=== PATIENT | female | born 1980 | race Caucasian/White ===

== ENCOUNTER 2021-03-31 02:02 | Inpatient (IN) ==
[2021-03-31 05:04] LABS: Basophils # 0.1 K/mcL (0.0-0.2); Basophils % 0.4 %; Eosinophils # 0.2 K/mcL (0.0-0.6); Eosinophils % 0.8 %; Hematocrit 30.9 % (35.3-44.9); Hemoglobin 9.7 g/dL (11.5-15.4); Immature Granulocytes % 0.5 % (0-4); Lymphocytes # 2.4 K/mcL (0.6-4.6); Lymphocytes % 12.3 %; Mean Corpuscular HGB Conc 31.4 g/dL (31.6-35.5); Mean Corpuscular Hemoglobin 26.7 pg (28.0-33.3); Mean Corpuscular Volume 85.1 fL (83.0-100.0); Mean Platelet Volume 9.3 fL (9.4-12.4); Monocytes # 0.6 K/mcL (0.0-1.3); Platelet Count 384 K/mcL (140-400); Red Blood Count 3.63 M/mcL (3.82-4.97); Red Cell Distribution Width 15.7 % (11.5-14.5); White Blood Count 19.3 K/mcL (4.3-11.1)
[2021-03-31] MEDS ORDERED: Isovue-370 500 ML BOTTLE IVP ONE (05:15)
[2021-03-31 05:17] LABS: BUN/Creatinine Ratio 14 (6-26); Blood Urea Nitrogen 11 mg/dL (6-20); Calcium 8.7 mg/dL (8.6-10.3); Carbon Dioxide 20 mEq/L (23-29); Chloride 107 mEq/L (98-107); Glucose 109 mg/dL (70-105); Osmolality,Calculated 284 (280-300); Potassium 3.3 mEq/L (3.5-5.1); Sodium 137 mEq/L (136-145); Troponin I < 0.03 ng/mL (< 0.04); eGFR For African Americans > 60 (> 60); eGFR For Non-African Americans > 60 (> 60)
[2021-03-31 05:54] LABS: Adenovirus Not Detected (Not Detect); Bordetella Pertussis Not Detected (Not Detect); Chlamydophila pneumoniae Not Detected (Not Detect); Coronavirus 229E Not Detected (Not Detect); Coronavirus HKU1 Not Detected (Not Detect); Coronavirus NL63 Not Detected (Not Detect); Coronavirus OC43 Not Detected (Not Detect); Human Metapneumovirus Not Detected (Not Detect); Human Rhinovirus/Enterovirus Not Detected (Not Detect); Influenza A Subtype 2009 H1 Not Detected (Not Detect); Influenza B Not Detected (Not Detect); Mycoplasma pneumoniae Not Detected (Not Detect); Parainfluenza Virus 1 Not Detected (Not Detect); Parainfluenza Virus 2 Not Detected (Not Detect); Parainfluenza Virus 3 Not Detected (Not Detect); Parainfluenza Virus 4 Not Detected (Not Detect); Respiratory Syncytial Virus Not Detected (Not Detect); SARS-CoV-2 Not Detected (Not Detect)
[2021-03-31] MEDS ORDERED: cefTRIAXone 1,000 MG in Water for inj. (sterile) 10 ML IVP ONE (06:32)
[2021-03-31] MEDS ORDERED: Azithromycin 500 MG in 0.9 % Sodium Chloride 250 ML IVPB ONE (06:32)
[2021-03-31] MEDS ORDERED: Ondansetron 4 MG/2 ML VIAL IVP PRN (07:18)
[2021-03-31] MEDS ORDERED: Naloxone 0.4 MG/ML INJ IVP PRN (07:18)
[2021-03-31 08:05] LABS: Mean Corpuscular HGB Conc 31.3 g/dL (31.6-35.5); Mean Corpuscular Hemoglobin 26.9 pg (28.0-33.3); Mean Platelet Volume 9.4 fL (9.4-12.4); Platelet Count 390 K/mcL (140-400); Red Blood Count 3.72 M/mcL (3.82-4.97); Red Cell Distribution Width 15.6 % (11.5-14.5)
[2021-03-31] MEDS: levoFLOXacin 750 MG/150 ML 750 MG/150 ML BAG IVPB SCH (11:59)
[2021-03-31] MEDS: *HR* HYDROcodone/Acet 5/325 mg TABLET PO PRN ×2 (12:02→20:12)
[2021-03-31] MEDS: Ipratropium/Albuterol Neb 3 ML IH PRN ×2 (16:25→20:26)
[2021-03-31] MEDS: *HR* Heparin 5,000 UNIT/ML VIAL SQ SCH (17:26)
[2021-03-31] MEDS ORDERED: Acetaminophen/Butalbital/CaffeineTABLET PO ONE (17:28)
[2021-03-31] MEDS: tiZANidine 4 MG TABLET PO SCH (20:12)
[2021-03-31] MEDS: Gabapentin 300 MG CAPSULE PO SCH (20:12)
[2021-04-01] MEDS: Ipratropium/Albuterol Neb 3 ML IH PRN (02:57)
[2021-04-01] MEDS: *HR* HYDROcodone/Acet 5/325 mg TABLET PO PRN ×4 (02:58→21:45)
[2021-04-01] MEDS ORDERED: Saline Nasal Spray 44 ML BOTTLE NS PRN (05:15)
[2021-04-01] MEDS ORDERED: Oxymetazoline Nasal SPRAY BOTTLE NS PRN (05:15)
[2021-04-01] MEDS: *HR* Heparin 5,000 UNIT/ML VIAL SQ SCH ×2 (05:30→15:33)
[2021-04-01 06:25] LABS: INR 1.2; Prothrombin Time 14.1 Seconds (9.4-12.1)
[2021-04-01] MEDS: Ipratropium/Albuterol Neb 3 ML IH SCH ×4 (06:28→22:15)
[2021-04-01 06:33] LABS: BUN/Creatinine Ratio 7 (6-26); Blood Urea Nitrogen 5 mg/dL (6-20); Calcium 8.4 mg/dL (8.6-10.3); Carbon Dioxide 21 mEq/L (23-29); Chloride 105 mEq/L (98-107); Glucose 133 mg/dL (70-105); Magnesium 1.7 mg/dL (1.6-2.6); Osmolality,Calculated 279 (280-300); Phosphorous 2.8 mg/dL (2.7-4.5); Potassium 2.8 mEq/L (3.5-5.1); Sodium 135 mEq/L (136-145); eGFR For African Americans > 60 (> 60); eGFR For Non-African Americans > 60 (> 60)
[2021-04-01] MEDS: FLUoxetine 20 MG CAPSULE PO SCH (07:37)
[2021-04-01] MEDS: Cholecalciferol (D-3) 1,000 UNIT (25MCG) TABLET PO SCH (07:39)
[2021-04-01] MEDS: levoFLOXacin 750 MG/150 ML 750 MG/150 ML BAG IVPB SCH (07:40)
[2021-04-01] MEDS ORDERED: hydroCHLOROthiazide 25 MG TABLET PO SCH (09:00)
[2021-04-01] MEDS ORDERED: Perflutren Lipid Microsphere 1.3 ML in 0.9 % Sodium Chloride 8.7 ML IVP PRN (10:51)
[2021-04-01] MEDS: cloNIDine HCL 0.1 MG TABLET PO SCH ×2 (13:14→20:23)
[2021-04-01] MEDS: Methylphenidate HCl 5 MG TABLET PO SCH ×2 (17:31→20:31)
[2021-04-01] MEDS: Gabapentin 300 MG CAPSULE PO SCH (20:22)
[2021-04-01] MEDS: Doxycycline 100 MG CAPSULE PO SCH (20:23)
[2021-04-01] MEDS: tiZANidine 4 MG TABLET PO SCH (20:23)
[2021-04-02] MEDS: Ipratropium/Albuterol Neb 3 ML IH SCH ×4 (03:38→21:58)
[2021-04-02 04:48] LABS: Basophils # 0.1 K/mcL (0.0-0.2); Basophils % 0.5 %; Eosinophils # 0.2 K/mcL (0.0-0.6); Eosinophils % 1.4 %; Hematocrit 30.3 % (35.3-44.9); Hemoglobin 9.5 g/dL (11.5-15.4); Immature Granulocytes % 0.4 % (0-4); Lymphocytes % 27.5 %; Mean Corpuscular HGB Conc 31.4 g/dL (31.6-35.5); Mean Corpuscular Hemoglobin 26.8 pg (28.0-33.3); Mean Corpuscular Volume 85.6 fL (83.0-100.0); Mean Platelet Volume 9.1 fL (9.4-12.4); Monocytes # 0.5 K/mcL (0.0-1.3); Monocytes % 3.5 %; Neutrophils # 9.7 K/mcL (1.6-8.9); Platelet Count 377 K/mcL (140-400); Red Blood Count 3.54 M/mcL (3.82-4.97); Red Cell Distribution Width 15.9 % (11.5-14.5); Segmented Neutrophils % 66.7 %; White Blood Count 14.6 K/mcL (4.3-11.1)
[2021-04-02 05:11] LABS: Alanine Aminotransferase 16 Units/L (7-52); Albumin 3.8 g/dL (3.5-5.7); Albumin/Globulin Ratio 1.1 (1.1-2.2); Alkaline Phosphatase 83 Units/L (34-104); Aspartate Amino Transferase 15 Units/L (13-39); BUN/Creatinine Ratio 7 (6-26); Bilirubin,Total 0.5 mg/dL (0.3-1.0); Blood Urea Nitrogen 5 mg/dL (6-20); Calcium 8.9 mg/dL (8.6-10.3); Carbon Dioxide 22 mEq/L (23-29); Chloride 100 mEq/L (98-107); Globulin 3.5 g/dL (2.4-3.5); Glucose 103 mg/dL (70-105); Osmolality,Calculated 288 (280-300); Potassium 2.8 mEq/L (3.5-5.1); Sodium 140 mEq/L (136-145); Total Protein 7.3 g/dL (6.4-8.9); eGFR For African Americans > 60 (> 60); eGFR For Non-African Americans > 60 (> 60)
[2021-04-02] MEDS: *HR* Enoxaparin 40 MG/0.4 ML SYRINGE SQ SCH ×2 (05:54→17:23)
[2021-04-02] MEDS: *HR* HYDROcodone/Acet 5/325 mg TABLET PO PRN (05:54)
[2021-04-02] MEDS ORDERED: Furosemide 20 MG/2 ML VIAL IVP SCH (09:00)
[2021-04-02] MEDS: levoFLOXacin 750 MG/150 ML 750 MG/150 ML BAG IVPB SCH (09:13)
[2021-04-02] MEDS: FLUoxetine 20 MG CAPSULE PO SCH (09:14)
[2021-04-02] MEDS: cloNIDine HCL 0.1 MG TABLET PO SCH (09:14)
[2021-04-02] MEDS: Doxycycline 100 MG CAPSULE PO SCH (09:14)
[2021-04-02] MEDS: Cholecalciferol (D-3) 1,000 UNIT (25MCG) TABLET PO SCH (09:14)
[2021-04-02] MEDS: Methylphenidate HCl 5 MG TABLET PO SCH ×2 (09:15→20:30)
[2021-04-02] MEDS ORDERED: Ibuprofen 400 MG TABLET PO ONE (09:30)
[2021-04-02] MEDS: tiZANidine 4 MG TABLET PO SCH (20:25)
[2021-04-02] MEDS: Gabapentin 300 MG CAPSULE PO SCH (20:25)
[2021-04-03] MEDS: Ipratropium/Albuterol Neb 3 ML IH SCH ×2 (03:43→10:29)
[2021-04-03] MEDS: *HR* Enoxaparin 40 MG/0.4 ML SYRINGE SQ SCH (04:57)
[2021-04-03 05:28] LABS: Hematocrit 30.1 % (35.3-44.9); Hemoglobin 9.2 g/dL (11.5-15.4); Mean Corpuscular HGB Conc 30.6 g/dL (31.6-35.5); Mean Corpuscular Hemoglobin 26.3 pg (28.0-33.3); Mean Platelet Volume 9.1 fL (9.4-12.4); Platelet Count 467 K/mcL (140-400); Red Cell Distribution Width 15.6 % (11.5-14.5); White Blood Count 17.4 K/mcL (4.3-11.1)
[2021-04-03 05:42] LABS: BUN/Creatinine Ratio 13 (6-26); Blood Urea Nitrogen 9 mg/dL (6-20); Calcium 8.9 mg/dL (8.6-10.3); Carbon Dioxide 24 mEq/L (23-29); Chloride 103 mEq/L (98-107); Glucose 115 mg/dL (70-105); Magnesium 2.1 mg/dL (1.6-2.6); Osmolality,Calculated 286 (280-300); Potassium 3.1 mEq/L (3.5-5.1); Sodium 138 mEq/L (136-145); eGFR For African Americans > 60 (> 60); eGFR For Non-African Americans > 60 (> 60)
[2021-04-03] MEDS: FLUoxetine 20 MG CAPSULE PO SCH (08:52)
[2021-04-03] MEDS: Methylphenidate HCl 5 MG TABLET PO SCH (08:52)
[2021-04-03] MEDS: cloNIDine HCL 0.1 MG TABLET PO SCH (08:53)
[2021-04-03] MEDS: Cholecalciferol (D-3) 1,000 UNIT (25MCG) TABLET PO SCH (08:54)
[2021-04-03] MEDS ORDERED: levoFLOXacin 750 MG TABLET PO SCH (09:00)
[2021-04-03 10:11] VITALS: BP 129/79
== END 2021-04-03 11:55 | disposition home or self-care (01) | DRG 871 ==
LOC: 2NENU 02:02 → EMEROOARM 02:02 → SUATTDRO 10:51 → 2NENU 11:26
PROVIDERS: ADMIT Internal Medicine; ATTEND Internal Medicine